=== PATIENT | female | born 1985 | race Two or more races ===

== ENCOUNTER 2024-06-20 09:00 | Outpatient (CLI) | payer OTHER | END 2024-06-20 09:03 | disposition home or self-care (01) | LOC: NUCLEAR 09:00 | PROVIDERS: ATTEND Obstetrics & Gynecology Gynecology | DX: I51.3 Intracardiac thrombosis, not elsewhere classified (principal) ==

== ENCOUNTER 2024-07-04 09:15 | Inpatient (IN) | payer OTHER ==
[~2024-07-04] VITALS: Ht 157.5 cm; Wt 3.2 kg
[2024-07-04 10:39] LABS: HEMOGLOBIN 12.7 g/dL (12.0-15.00); MEAN CELL VOLUME 92.7 fL (80.00-100.00); MEAN CORPUSCULAR HEMOGLOBIN 31.9 pg (27.00-32.0); MEAN CORPUSCULAR HGB CONC 34.4 g/dl (32.0-36.0); PLATELET COUNT 204 K/uL (150-450); RED BLOOD COUNT 3.99 M/uL (4.00-6.00); RED CELL DISTRIBUTION WIDTH 13.8 % (11.5-14.5)
[2024-07-04] MEDS ORDERED: PRENATABS FA T1 EACH PO (10:46)
[2024-07-04 11:25] LABS: INR < 0.93; PARTIAL THROMBOPLASTIN TIME 25.2 SECONDS (22.0-34.0); PROTHROMBIN TIME 9.7 SECONDS (9.0-11.5)
[2024-07-04 11:37] LABS: ALBUMIN 2.8 gm/dL (3.4-5.0); BILIRUBIN TOTAL 0.3 mg/dL (0.3-1.2); CALCIUM 9.3 mg/dL (8.5-10.1); CREATININE SERUM 0.51 mg/dL (0.55-1.02); GFR 135.69; GLOBULINA 3.3 G/DL (2.4-3.5); POTASSIUM 4.42 mEq/L (3.5-5.1); TOTAL PROTEIN 6.1 gm/dL (6.4-8.2)
[2024-07-05 08:51] VITALS: BP 122/82
[2024-07-05] MEDS ORDERED: RINGERS SOLUTION,LACTATED 1,000 ML IV SCH (10:45)
[2024-07-05] MEDS ORDERED: CITRIC ACID/SODIUM CITRATE 30 ML BLIST.PACK PO SCH (10:45)
[2024-07-05] MEDS ORDERED: CEFOXITIN SODIUM 2,000 MG VIAL IV SCH (10:45)
[2024-07-05] MEDS ORDERED: ERYTHROMYCIN BASE OPHT 1GM EACH TUBE OP ONE (13:30)
[2024-07-05] MEDS ORDERED: OXYTOCIN 20 UNITS/1000ML RL PIGGYBAG IV ONE (13:30)
[2024-07-05] MEDS ORDERED: OXYTOCIN 20 UNITS in RINGERS SOLUTION,LACTATED 1,000 ML IV SCH (16:15)
[2024-07-05] MEDS ORDERED: MORPHINE SULFATE 4 MG/ML CARTRIDGE IV PRN (16:15)
[2024-07-05] MEDS ORDERED: KETOROLAC TROMETHAMINE 30 MG VIAL IM NR (16:15)
[2024-07-05 16:51] VITALS: BP 135/79
[2024-07-05 17:00] LABS: HEMATOCRIT 34.9 % (36.0-45.00); HEMOGLOBIN 11.8 g/dL (12.0-15.00); MEAN CELL VOLUME 93.2 fL (80.00-100.00); MEAN CORPUSCULAR HEMOGLOBIN 31.6 pg (27.00-32.0); MEAN CORPUSCULAR HGB CONC 33.9 g/dl (32.0-36.0); PLATELET COUNT 197 K/uL (150-450); RED BLOOD COUNT 3.74 M/uL (4.00-6.00); RED CELL DISTRIBUTION WIDTH 13.3 % (11.5-14.5)
[2024-07-05] MEDS ORDERED: CEFAZOLIN SODIUM 1,000 MG VIAL IV NR (19:00)
[2024-07-06] MEDS ORDERED: KETOROLAC TROMETHAMINE 10 MG TABLET PO SCH
[2024-07-06 00:37] VITALS: BP 123/81
[2024-07-06] MEDS ORDERED: SIMETHICONE 125 MG CAPSULE PO SCH (01:00)
[2024-07-06 08:00] VITALS: BP 127/80
[2024-07-06 08:48] LABS: HEMOGLOBIN 12.2 g/dL (12.0-15.00); MEAN CELL VOLUME 93.6 fL (80.00-100.00); MEAN CORPUSCULAR HEMOGLOBIN 31.6 pg (27.00-32.0); MEAN CORPUSCULAR HGB CONC 33.8 g/dl (32.0-36.0); PLATELET COUNT 193 K/uL (150-450); RED BLOOD COUNT 3.84 M/uL (4.00-6.00); RED CELL DISTRIBUTION WIDTH 13.3 % (11.5-14.5)
[2024-07-06] MEDS ORDERED: RINGERS SOLUTION,LACTATED 1,000 ML IV SCH (09:00)
[2024-07-06] MEDS ORDERED: OxyCODONE HCL/APAP UD (PERCOCET) PO SCH (09:00)
[2024-07-06 16:00] VITALS: BP 123/80
[2024-07-07 00:48] VITALS: BP 125/82
[2024-07-07 05:24] VITALS: BP 120/80
[2024-07-07] MEDS ORDERED: OXYC1TAB9 PO (07:44)
[2024-07-07] MEDS ORDERED: KETO10TA2 PO (07:44)
[2024-07-07 08:23] VITALS: BP 138/90
== END 2024-07-07 12:11 | disposition home or self-care (01) | DRG 788 ==
LOC: LDR 07-05 09:42 → OB/GYN 07-05 09:42 → O/R 07-05 11:42 → OB/GYN 07-05 12:28
PROVIDERS: Obstetrics & Gynecology Maternal & Fetal Medicine; ADMIT Obstetrics & Gynecology; ATTEND Obstetrics & Gynecology
PROC: 4A1HXCZ Monitoring of Products of Conception, Cardiac Rate, External Approach (ICD-10-PCS; 2024-07-05)
PROC: 10D00Z1 Extraction of Products of Conception, Low, Open Approach (ICD-10-PCS; principal; 2024-07-05 10:00)
DX: O34.211 Maternal care for low transverse scar from previous cesarean delivery (principal); Z3A.38 38 weeks gestation of pregnancy; Z37.0 Single live birth